=== PATIENT | female | born 1985 | race Caucasian/White ===

== ENCOUNTER 2016-09-02 19:52 | Emergency (ER) | payer OTHER | END 2016-09-02 20:45 | disposition home or self-care (01) | LOC: ER1 19:52 | DX: J02.9 Acute pharyngitis, unspecified (principal); H92.03 Otalgia, bilateral; F17.210 Nicotine dependence, cigarettes, uncomplicated | CPT/HCPCS: 99282 ==

== ENCOUNTER 2021-10-18 16:23 | Emergency (ER) | payer OTHER ==
[~2021-10-18 16:23] MED LIST: IBUPROFEN600 MG PO
== END 2021-10-18 18:36 | disposition left against medical advice (07) ==
LOC: ER1 16:23
DX: Z53.21 Procedure and treatment not carried out due to patient leaving prior to being seen by health care provider (principal)

== ENCOUNTER 2021-10-28 14:05 | Emergency (ER) | payer OTHER ==
[2021-10-28] MEDS ORDERED: ULTRAM50 MG PO (16:16)
== END 2021-10-28 16:28 | disposition home or self-care (01) ==
LOC: ER1 14:05
DX: M54.50 Low back pain, unspecified (principal); G89.29 Other chronic pain; F17.200 Nicotine dependence, unspecified, uncomplicated
CPT/HCPCS: 99283

== ENCOUNTER 2021-12-20 12:50 | Emergency (ER) | payer OTHER ==
[~2021-12-20 12:50] MED LIST changes: +ULTRAM50 MG PO
[2021-12-20] MEDS ORDERED: CYCLOBENZAPRINE10 MG PO (16:46)
== END 2021-12-20 17:40 | disposition home or self-care (01) ==
LOC: ER1 12:50
DX: G89.29 Other chronic pain (principal); M54.50 Low back pain, unspecified; F17.210 Nicotine dependence, cigarettes, uncomplicated; Z90.49 Acquired absence of other specified parts of digestive tract
CPT/HCPCS: 96372; 99283; J1885; J2360